=== PATIENT | female | born 1990 | race Two or more races ===

== ENCOUNTER 2023-10-09 13:43 | Emergency (ER) | payer MEDICAID ==
[~2023-10-09] VITALS: Ht 154.9 cm; Wt 80.0 kg
[2023-10-09 13:51] VITALS: TEMP 98.3
[2023-10-09] MEDS: CEPHALEXIN MONOHYDRATE 500 MG CAPSULE PO ONE (16:38)
[2023-10-09] MEDS: LIDOCAINE 1% 10 ML VIAL ID ONE (16:38)
[2023-10-09] MEDS: IBUPROFEN 600 MG TABLET PO ONE (16:39)
[2023-10-09] MEDS: BACITRACIN 0.9 GM PACKET OINTMENT TP ONE (16:39)
[2023-10-09] MEDS: PERTUSS(ACELL),DIPH,TET/PF 0.5 ML SYRINGE [ADULT] IM. ONE (16:40)
[2023-10-09] MEDS ORDERED: CEPH-558 PO (18:48)
[2023-10-09] MEDS: HYDROCODONE/ACETAMINOPHEN 5-325 MG TABLET PO ONE (19:00)
[2023-10-09 19:01] VITALS: BP 131/74; PULSE 94; RESP 18
== END 2023-10-09 19:02 | disposition home or self-care (01) ==
LOC: EMS 13:44
DX: S61.411A Laceration without foreign body of right hand, initial encounter (principal); Z98.51 Tubal ligation status; W01.118A Fall on same level from slipping, tripping and stumbling with subsequent striking against other sharp object, initial encounter; Y93.89 Activity, other specified; Y92.89 Other specified places as the place of occurrence of the external cause; Y99.8 Other external cause status
CPT/HCPCS: 99284; 90715; 90471; 12002; J3490